=== PATIENT | female | born 1950 | race African-American/Black ===

== ENCOUNTER → 2017-12-21 | Day surgery (SDC) | payer OTHER ==
--- NOTE | 2017-12-22 00:50 | OP ---
DATE OF OPERATION: 12/21/2017 PREOPERATIVE DIAGNOSIS: Abnormal left mammography. POSTOPERATIVE DIAGNOSIS: Abnormal left mammography. PROCEDURE: Left stereotactic needle biopsy with clips. SURGEON: Leilani Broussard M.D. ANESTHESIA: Local. COMPLICATIONS: None. This is a sterile procedure. INDICATION FOR PROCEDURE: Patient presented with a screening mammogram that noted a tight cluster of microcalcifications in the left breast posterior central location. Recommendation for needle biopsy. The procedure was discussed with all the questions answered. PROCEDURE IN DETAIL: Patient was brought to [facility] [place], laid prone on the OR table. Using the cranial approach, the calcifications in the posterior central breast were identified. A sterile prep was obtained. A target was chosen. There was a positive stroke margin. Using Betadine and 1% lidocaine, a 10-gauge [employer] device was used to take several cores from this area. Cores with calcifications within them. These were handled with usual calcification protocol. A clip was deployed in the area. Hemostasis assured with direct pressure. Incision was closed with Steri-Strips. She tolerated the procedure well and left the breast imaging center in good condition. Jesus TINAJERO/[id number]
--- NOTE | 2017-12-23 16:32 | PATH ---
Surgical Pathology Report Patient Name: DEREK MUSE [facility]. Rec. #: [id number] /Age/Gender: 1950 (Age: 67) / F Account: [id number] Location: [facility] Taken: 12/21/2017 Received: 12/21/2017 Reported: 12/23/2017 Physicians: Leilani Broussard M.D. Specimen(s) Received A: LEFT BREAST SPECIMEN WITH CALCIFICATIONS B: LEFT BREAST SPECIMEN WITHOUT CALCIFICATIONS Clinical History Nonpalpable lesion Mammographic findings: Microcalcification, suspicious Final Diagnosis A. BREAST, LEFT, WITH CALCIFICATIONS, STEREOTACTIC CORE BIOPSY: BENIGN BREAST TISSUE WITH STROMAL FIBROSIS, MILD PERIDUCTAL CHRONIC INFLAMMATION AND ASSOCIATED STROMAL MICROCALCIFICATIONS. B. BREAST, LEFT, WITHOUT CALCIFICATIONS, STEREOTACTIC CORE BIOPSY: BENIGN BREAST TISSUE WITH STROMAL FIBROSIS, FOCAL CYST FORMATION, MILD PERIDUCTAL CHRONIC INFLAMMATION, AND ASSOCIATED STROMAL MICROCALCIFICATIONS. Electronically Signed Clarissa Caban M.D. Gross Description A. Received in formalin labeled "left breast with calcifications," is a 1.8 x 1.7 x 0.3 cm aggregate of multiple zuniga-yellow, irregular to cylindrical portions of fibroadipose tissue. The formalin is filtered and the specimen is entirely submitted in one cassette. B. Received in formalin labeled "left breast without calcifications," is a 2.2 x 1.5 x 0.3 cm aggregate of multiple zuniga-yellow, irregular to cylindrical portions of fibroadipose tissue. The formalin is filtered and the specimen is entirely submitted in one cassette. Time to formalin fixation: 5 minutes Total formalin fixation time: Approximately 29 hours. 12/22/201712/22/2017
== END | disposition home or self-care (01) ==
LOC: FMAMMOTONE 11:52
PROVIDERS: ATTEND Surgery
PROC: 0HBU3ZX Excision of Left Breast, Percutaneous Approach, Diagnostic (ICD-10-PCS; principal; 2017-12-21)
DX: N60.32 Fibrosclerosis of left breast (principal); R92.8 Other abnormal and inconclusive findings on diagnostic imaging of breast; N64.89 Other specified disorders of breast
CPT/HCPCS: 19081; 87899; 88305-TC; A4648